=== PATIENT | female | born 1985 ===

== ENCOUNTER 2022-04-09 07:22 | Day surgery (SDC) | payer OTHER ==
[~2022-04-09] VITALS: Ht 152.4 cm; Wt 94.3 kg
== END 2022-04-09 16:25 | disposition home or self-care (01) ==
LOC: SURG 07:22 → O/R 07:22 → CIR.AMB 07:22 → SURG 09:00 → CIR.AMB 09:15 → EDSTATUS 09:15 → CIR.AMB 16:25 → O/R 16:25
PROVIDERS: ATTEND Colon & Rectal Surgery
DX: K64.2 Third degree hemorrhoids (principal); K62.0 Anal polyp; K62.2 Anal prolapse; Z20.822 Contact with and (suspected) exposure to COVID-19; Z88.0 Allergy status to penicillin; I10 Essential (primary) hypertension; Z86.16 Personal history of COVID-19; E66.9 Obesity, unspecified